=== PATIENT | male | born 1965 | race Hispanic/Latino ===

== ENCOUNTER 2023-10-20 21:11 | Emergency (ER) | payer OTHER ==
[~2023-10-20] VITALS: Ht 175.3 cm; Wt 81.2 kg
[2023-10-20 21:24] VITALS: BP 142/87; PULSE 77; RESP 20
[2023-10-20] MEDS ORDERED: KETOROLAC 15MG/ML VIAL (15MG/ML) IM ONE (23:00)
[2023-10-20] MEDS ORDERED: NAPR-1180 PO (23:30)
== END 2023-10-21 00:06 | disposition home or self-care (01) ==
LOC: EDH 21:11
DX: S80.02XA Contusion of left knee, initial encounter (principal); E11.9 Type 2 diabetes mellitus without complications; Z88.8 Allergy status to other drugs, medicaments and biological substances; W01.0XXA Fall on same level from slipping, tripping and stumbling without subsequent striking against object, initial encounter; Y93.89 Activity, other specified; Y92.89 Other specified places as the place of occurrence of the external cause; Y99.8 Other external cause status
CPT/HCPCS: 99283; 73562; 96372; J1885